=== PATIENT | female | born 1940 | race Hispanic/Latino ===

== ENCOUNTER 2018-10-09 18:01 | Emergency (ER) | payer MEDICARE ==
[~2018-10-09] VITALS: Ht 157.5 cm; Wt 72.6 kg
[2018-10-09 18:40] LABS: BASOPHILS # (AUTO) 0.1 (0.0-0.1); BASOPHILS % 0.6 % (0.0-1.0); EOSINOPHILS # (AUTO) 0.3 (0.0-0.4); EOSINOPHILS % 3.9 % (0.0-6.0); HEMOGLOBIN 13.9 g/dL (12.0-16.0); LYMPHOCYTES # (AUTO) 2.2 (1.0-3.2); LYMPHOCYTES % 27.8 % (18.0-39.1); MEAN CORPUSCULAR HEMOGLOBIN 33.7 pg (28-32); MEAN CORPUSCULAR HGB CONC 33.9 g/dL (31-35); MEAN CORPUSCULAR VOLUME 99.3 fL (81-99); MONOCYTES # (AUTO) 0.5 (0.2-0.8); MONOCYTES % 6.6 % (4.4-11.3); NEUTROPHILS # (AUTO) 4.7 (2.1-6.9); NEUTROPHILS % 60.7 % (38.7-80.0); PLATELET COUNT 197 x10e3/uL (140-360); RED BLOOD COUNT 4.13 x10e6/uL (3.6-5.1); RED CELL DISTRIBUTION WIDTH 12.3 % (11.7-14.4)
--- NOTE | 2018-10-09 18:46 | NUR ---
REC'D PT IN RM 7 FOR C/O LEG SWELLING P [address] TRIP[address] PLACED ON THE MONITOIR AND IN A GOWN. IV ACCESS ESTABLISHED. FAMILY AT SIDE
[2018-10-09 19:02] LABS: ALANINE AMINOTRANSFERASE 20 IU/L (0-55); ALBUMIN 3.7 g/dL (3.5-5.0); ALBUMIN/GLOBULIN RATIO 1.2 (0.8-2.0); ALKALINE PHOSPHATASE 55 IU/L (40-150); ANION GAP 14.8 mmol/L (8-16); BLOOD UREA NITROGEN 17 mg/dL (7-26); BUN/CREATININE RATIO 22 (6-25); CALCIUM 8.8 mg/dL (8.4-10.2); CARBON DIOXIDE 24 mmol/L (22-29); CHLORIDE 109 mmol/L (98-107); CREATININE, SERUM 0.78 mg/dL (0.57-1.11); EST GLOMERULAR FILTRATION RATE > 60 ML/MIN (60-); GLUCOSE 109 mg/dL (74-118); POTASSIUM 3.8 mmol/L (3.5-5.1); SODIUM 144 mmol/L (136-145)
--- NOTE | 2018-10-09 19:34 | Diagnostic Imaging Report ---
EXAM: XR CHEST 1 VIEW DATE: 10/09/2018 6:18 PM INDICATION: swelling COMPARISON: None FINDINGS: Lines and Tubes: None Heart and Mediastinum: Upper normal. Lungs and Pleura: Minimal basilar opacities. Bones and Soft Tissues: No acute findings. IMPRESSION: 1. Basilar atelectasis, edema, and/or pneumonia. Signed by: Dr. Tom Guillen MD on 10/09/2018 7:31 PM
--- NOTE | 2018-10-09 19:35 | NUR ---
LAB CALLED TO NOTIFY PT'S D-DIMER--5.19. DR SMITH AWARE
== END 2018-10-09 20:26 | disposition home or self-care (01) ==
LOC: ER 18:01
DX: M79.605 Pain in left leg (principal); M79.604 Pain in right leg; R60.0 Localized edema; I10 Essential (primary) hypertension
CPT/HCPCS: 36415; 71045; 80053; 83880; 85025; 85379; 93005; 93970; 99284